=== PATIENT | male | born 1980 | race Two or more races ===

== ENCOUNTER 2025-04-10 11:51 | Emergency (ER) | payer MEDICAID ==
[~2025-04-10] VITALS: Ht 167.6 cm; Wt 64.0 kg
[2025-04-10 12:00] VITALS: O2SAT 98
[2025-04-10 12:05] VITALS: TEMP 36.9; O2SAT 99
[2025-04-10] MEDS ORDERED: VANCOMYCIN 1.5GM/250ML 250 ML IV SCH (12:45)
[2025-04-10] MEDS ORDERED: CEFEPIME 2GM IN DEXT 5% 100ML IV ONE (12:45)
[2025-04-10 13:12] LABS: BASOPHILS % 0.4 % (0.0-2.0); EOSINOPHILS % 4.4 % (0.0-5.0); HEMATOCRIT. 40.4 % (42.0-52.0); HEMOGLOBIN. 13.4 g/dL (14.0-18.0); LYMPHOCYTES % 14.8 % (20.0-50.0); MEAN PLATELET VOLUME 8.8 fl (7.4-10.4); MONOCYTES % 5.8 % (2.0-8.0); NEUTROPHILS % 74.6 % (40.0-76.0); PLATELET 305 x1000/uL (130-400); RED BLOOD CELL COUNT 4.40 mill/uL (4.7-6.1); RED CELL DISTRIBUTION WIDTH 13.5 % (11.6-14.6)
[2025-04-10 13:25] LABS: CREATININE 0.8 mg/dL (0.6-1.3)
[2025-04-10 13:26] LABS: UREA NITROGEN BLOOD 12 mg/dL (9-23)
[2025-04-10 13:27] LABS: ASPARTATE AMINOTRANSFERASE 22 IU/L (<34)
[2025-04-10 13:28] LABS: BILIRUBIN DIRECT 0.2 mg/dL (<=3.0); BILIRUBIN TOTAL 0.6 mg/dL (0.1-1.0); PROTEIN TOTAL 7.1 g/dL (6.0-8.3)
[2025-04-10 13:42] VITALS: BP 144/87; PULSE 105; RESP 18
[2025-04-10] MEDS: CEFEPIME 2GM PREMIX 100ML IV NR (13:42)
[2025-04-10] MEDS: IBUPROFEN 600MG TABLET PO ONE (13:42)
[2025-04-10] MEDS: VANCOMYCIN 1.5GM PMX (XELLIA) 300 ML IV SCH (14:56)
[2025-04-10 17:23] LABS: COLOR URINE YELLOW (YELLOW); GLUCOSE URINE NEGATIVE (NEGATIVE); KETONES URINE TRACE (NEGATIVE); LEUKOCYTE ESTERASE URINE NEGATIVE (NEGATIVE); NITRITE URINE NEGATIVE (NEGATIVE); OCCULT BLOOD URINE NEGATIVE (NEGATIVE); PH URINE 6.5 (4.5-8.0); PROTEIN URINE 1+ (NEGATIVE); SPECIFIC GRAVITY URINE 1.040 (1.005-1.030); UROBILINOGEN URINE 0.2 E.U./dL (0.2-1.0)
[2025-04-10 17:53] LABS: CLARITY URINE SL HAZY (CLEAR)
[2025-04-10 17:55] LABS: WBC URINE 0-2 /hpf (0-2)
[2025-04-10 17:56] LABS: BACTERIA URINE NONE SEEN; MUCUS URINE 2+ /lpf (NONE/TRACE); RBC URINE 0-2 /hpf (0-2); SQUAMOUS EPITHELIAL CELL URINE RARE /lpf (RARE/1+)
== END 2025-04-10 18:10 | disposition left against medical advice (07) ==
LOC: ER 11:51 → CANBEDREQ 15:55 → ER 18:10
DX: R21 Rash and other nonspecific skin eruption (principal); R06.02 Shortness of breath; Z79.899 Other long term (current) drug therapy
CPT/HCPCS: 99284; 96365; 96366; 96367; 80076; 80048; 81003; 83880; 85025; 87040; 36415; J3373; J0692